=== PATIENT | male | born 1975 | race Caucasian/White ===

== ENCOUNTER 2016-12-30 12:48 | Emergency (ER) | payer MEDICAID ==
[~2016-12-30] VITALS: Ht 172.7 cm; Wt 91.3 kg
[2016-12-30 17:06] VITALS: BP 132/70
== END 2016-12-30 17:06 | disposition home or self-care (01) ==
LOC: ED 12:48
DX: L02.214 Cutaneous abscess of groin (principal); Z79.899 Other long term (current) drug therapy
CPT/HCPCS: J2001

== ENCOUNTER 2017-01-01 11:52 | Inpatient (IN) | payer MEDICAID ==
[~2017-01-01] VITALS: Ht 172.7 cm; Wt 89.8 kg
[2017-01-01 14:24] LABS: BASOPHIL % 0.7 % (0-2); PLATELET COUNT 319 x10^3mcL (130-400); RED CELL DISTRIBUTION WIDTH 14.1 % (11.5-14.5)
[2017-01-01 14:38] LABS: CALCIUM 8.8 mg/dL (8.5-10.1); CARBON DIOXIDE 26.1 mmol/L (21-32); CHLORIDE SERUM 103 mmol/L (98-107); CREATININE SERUM 1.1 mg/dL (0.7-1.3); GFR1 > 60 mL/min; GLUCOSE SERUM 90 mg/dL (74-106); POTASSIUM SERUM 4.3 mmol/L (3.5-5.1); SODIUM SERUM 138 mmol/L (136-145)
[2017-01-01 14:43] LABS: ALBUMIN 3.5 g/dL (3.4-5.0); ALKALINE PHOSPHATASE 54 U/L (46-116); ALT/SGPT 47 U/L (16-63); AST/SGOT 25 U/L (15-37); BILIRUBIN TOTAL 0.25 mg/dL (0.20-1.00); CHOLESTEROL 192 mg/dL (<200); TOTAL PROTEIN, SERUM 7.8 g/dL (6.4-8.2); TRIGLYCERIDES 119 mg/dL (<150)
[2017-01-01] MEDS ORDERED: KEFLEX250 M1 (14:50)
[2017-01-01] MEDS ORDERED: NORCO1 TA2 PO (14:50)
[2017-01-01 14:51] LABS: CHOLESTEROL/HDL RATIO 10.7; HDL CHOLESTEROL 18 mg/dL (40-60)
[2017-01-01] MEDS ORDERED: BACTRIM DS1 TAB PO (14:51)
[2017-01-01 15:25] LABS: MAGNESIUM 2.2 mg/dL (1.8-2.4); PHOSPHOROUS 2.8 mg/dL (2.5-4.9)
[2017-01-01 15:34] VITALS: BP 126/73
[2017-01-01 15:35] LABS: FREE T4 0.94 ng/dL (0.76-1.46); FREE THYROXINE INDEX 2.4 ug/dL (1.4-4.5); T4(THYROXINE) 6.4 ug/dL (4.7-13.3)
[2017-01-01 15:36] LABS: T3 TOTAL 0.69 ng/mL
[2017-01-01 18:20] LABS: UA SPECIFIC GRAVITY 1.025 (1.005-1.035); microscopic required? YES; urine erythrocyte TRACE (NEGATIVE)
[2017-01-01 18:33] LABS: AMPHETAMINE QUAL UR NONE DETECTED (NEG <=1000)
[2017-01-01 21:56] VITALS: BP 133/78
[2017-01-02 06:17] VITALS: BP 107/68
[2017-01-02 09:00] VITALS: BP 118/68
[2017-01-02 13:38] VITALS: Ht 172.7 cm; Wt 89.8 kg
[2017-01-02 14:11] VITALS: BP 125/78
[2017-01-02 16:09] VITALS: BP 125/78
== END 2017-01-02 16:50 | disposition home or self-care (01) | DRG 364 ==
LOC: ED 11:52 → DU 14:24
PROVIDERS: Specialist; ADMIT Family Medicine
PROC: 0Y960ZZ Drainage of Left Inguinal Region, Open Approach (ICD-10-PCS; principal; 2017-01-02)
DX: L02.214 Cutaneous abscess of groin (principal); B95.62 Methicillin resistant Staphylococcus aureus infection as the cause of diseases classified elsewhere; E78.5 Hyperlipidemia, unspecified
CPT/HCPCS: 80307; 83880; 84439; J2001; J3490; J7030; Q0092